=== PATIENT | male | born 1970 | race Caucasian/White ===

== ENCOUNTER 2017-09-02 19:47 | Emergency (ER) | payer OTHER ==
[2017-09-02 19:57] VITALS: TEMP 98.9
[2017-09-02] MEDS ORDERED: HYDROmorphone 2 MG/ML 1 ML SYRINGE IM STA (20:33)
[2017-09-02] MEDS ORDERED: HYDROmorphone 2 MG/ML 1 ML SYRINGE IVP STA (21:07)
[2017-09-02] MEDS ORDERED: SODIUM CHLORIDE 0.9% 1,000 ML IV STA (21:07)
[2017-09-02] MEDS ORDERED: RX INFO: IV CONTRAST WAS GIVEN 1 EACH MISC MISCELLANE PRN (21:07)
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
[2017-09-02 21:31] LABS: Basophils # (A) 0.1 k/uL (0-0.2); Basophils % (A) 0 %; Eosinophils % (A) 0 %; HCT 45.8 % (39.0-53.0); HGB 14.9 gm/dL (13.0-17.5); Lymphocytes # (A) 1.7 k/uL (1.0-4.8); Lymphocytes % (A) 13 %; MCHC 32.6 g/dL (31.0-37.0); MCV 91.9 fL (80.0-100.0); Mean Platelet Volume 7.9; Monocytes # (A) 0.6 k/uL (0-1.0); Monocytes % (A) 5 %; Neutrophils # (A) 10.5 k/uL (1.3-7.7); Neutrophils % (A) 80 %; Platelet Count 257 k/uL (150-450); RBC 4.98 m/uL (4.30-5.90); RDW 12.6 % (11.5-15.5); WBC 13.1 k/uL (3.8-10.6)
[2017-09-02 21:35] VITALS: RESP 18
[2017-09-02 21:35] LABS: ALT 193 U/L (21-72); AST 136 U/L (17-59); Albumin 4.3 g/dL (3.5-5.0); Alkaline Phosphatase 104 U/L (38-126); Anion Gap 18 mmol/L; Blood Urea Nitrogen 11 mg/dL (9-20); Calcium 9.5 mg/dL (8.4-10.2); Carbon Dioxide 24 mmol/L (22-30); Chloride 97 mmol/L (98-107); Glucose 256 mg/dL (74-99); Potassium 4.4 mmol/L (3.5-5.1); Sodium 139 mmol/L (137-145); Total Bilirubin 0.5 mg/dL (0.2-1.3); Total Protein 7.6 g/dL (6.3-8.2)
[2017-09-02 21:36] LABS: Prothrombin Time 10.2 sec (9.0-12.0)
[2017-09-02 21:45] LABS: Creatine Kinase 411 U/L (55-170)
[2017-09-02 21:46] LABS: Partial Thromboplastin Time 20.7 sec (22.0-30.0)
[2017-09-02 21:58] LABS: Troponin I <0.012 ng/mL (0.000-0.034)
[2017-09-02 22:02] LABS: Creatine Kinase MB 2.6 ng/mL (0.0-2.4)
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
[2017-09-02] MEDS ORDERED: HYDROmorphone 0.5 MG/0.5 ML SYRINGE IVP STA (22:39)
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
[2017-09-02] MEDS ORDERED: ACET/COD 300 MG/30 MG STARTER PACK 6 TAB BTL PO STA (23:23)
[2017-09-02 23:33] VITALS: BP 132/78
[2017-09-02 23:52] VITALS: PULSE 105
== END 2017-09-02 23:52 | disposition home or self-care (01) ==
LOC: EC 19:47
DX: S42.112A Displaced fracture of body of scapula, left shoulder, initial encounter for closed fracture (principal); K76.0 Fatty (change of) liver, not elsewhere classified; Y92.89 Other specified places as the place of occurrence of the external cause; M54.6 Pain in thoracic spine; E11.9 Type 2 diabetes mellitus without complications; Z79.84 Long term (current) use of oral hypoglycemic drugs; Z79.899 Other long term (current) drug therapy; Z90.49 Acquired absence of other specified parts of digestive tract; V86.52XA Driver of snowmobile injured in nontraffic accident, initial encounter
CPT/HCPCS: 36415; 93005; 86900; 86901; 80053; 82550; 82553; 84484; 85025; 85610; 85730; 86850; 72070; 73030; 71045; 71260; 74177; 73200; 99285; 96374; 96376; 96361 ×2; 96372; J1170 ×2; Q9967

== ENCOUNTER → 2017-12-21 | Outpatient (CLI) | payer OTHER ==
[2017-12-21 13:39] LABS: Basophils % (A) 0 %; Eosinophils # (A) 0.2 k/uL (0-0.7); Eosinophils % (A) 2 %; HCT 46.7 % (39.0-53.0); HGB 15.5 gm/dL (13.0-17.5); Lymphocytes # (A) 1.8 k/uL (1.0-4.8); Lymphocytes % (A) 25 %; MCH 29.4 pg (25.0-35.0); MCHC 33.2 g/dL (31.0-37.0); MCV 88.5 fL (80.0-100.0); Mean Platelet Volume 7.8; Monocytes # (A) 0.6 k/uL (0-1.0); Monocytes % (A) 8 %; Neutrophils # (A) 4.3 k/uL (1.3-7.7); Neutrophils % (A) 62 %; Platelet Count 212 k/uL (150-450); RBC 5.28 m/uL (4.30-5.90); RDW 12.7 % (11.5-15.5); WBC 6.9 k/uL (3.8-10.6)
[2017-12-21 13:57] LABS: ALT 128 U/L (21-72); AST 95 U/L (17-59); Albumin 4.3 g/dL (3.5-5.0); Alkaline Phosphatase 121 U/L (38-126); Anion Gap 14 mmol/L; Blood Urea Nitrogen 11 mg/dL (9-20); Carbon Dioxide 30 mmol/L (22-30); Chloride 99 mmol/L (98-107); Cholesterol 161 mg/dL (<200); Glucose 203 mg/dL (74-99); HDL Cholesterol 40 mg/dL (40-60); LDL Cholesterol,Calculated 97 mg/dL (0-99); Potassium 4.5 mmol/L (3.5-5.1); Sodium 143 mmol/L (137-145); Total Bilirubin 0.9 mg/dL (0.2-1.3); Total Protein 7.4 g/dL (6.3-8.2); Triglycerides 121 mg/dL (<150)
[2017-12-21 14:27] LABS: Prostate Specific Antigen 0.75 ng/mL (0.00-4.00)
[2017-12-21 20:14] LABS: Hemoglobin A1C 10.5 % (4.0-6.0)
== END | disposition home or self-care (01) ==
LOC: LABWHC1 13:06
PROVIDERS: ATTEND Family Medicine
DX: E11.9 Type 2 diabetes mellitus without complications (principal); Z12.5 Encounter for screening for malignant neoplasm of prostate
CPT/HCPCS: 36415; 80053; 80061; 83036; 84153; 85025

== ENCOUNTER → 2019-04-17 | Outpatient (CLI) | payer OTHER ==
--- NOTE | 2019-04-17 14:21 | CT ---
EXAMINATION TYPE: CT abdomen pelvis wo con DATE OF EXAM: 04/17/2019 COMPARISON: 09/02/2017 INDICATION: R 31.0 DLP: 1225.1 mGycm, Automated exposure control for dose reduction was used. CONTRAST: 0 mL of Isovue 300. Study performed without Oral Contrast TECHNIQUE: Axial images were obtained from above the diaphragm to the pubic rami in the axial plane a t 5 mm thick sections. Reconstructed images are reviewed on the computer in the coronal plane. FINDINGS: Limited CT sections are obtained the lung bases. The lung bases are clear. CT ABDOMEN: Liver: Moderate fatty infiltration of the liver. Spleen: Normal Pancreas: Normal Adrenal glands: The adrenal glands are normal. Gallbladder: Surgically absent Kidneys: No masses are evident. No hydronephrosis is present. No cysts are present. Renal stones a re not evident. Aorta: Normal Inferior vena cava: Normal. CT PELVIS: A few diverticuli within the sigmoid colon. Study is performed without oral contrast limiting bowel e valuation. No suspicious inflammatory changes or dilated bowel are evident. Appendix: Not identified. No suspicious inflammatory changes or dilated structures are evident. Urinary bladder: Normal. Genitourinary structures: Prostate is prominent. Osseous structures: Small sclerotic areas within the lateral posterior left ischial ramus. Small bone island is in the anterior left femoral head. IMPRESSIONS: 1. Fatty infiltration of liver. 2. Mild diverticulosis of the sigmoid colon.
== END | disposition home or self-care (01) ==
LOC: RADCTMAIN 13:08
PROVIDERS: ATTEND Family Medicine
DX: K76.0 Fatty (change of) liver, not elsewhere classified (principal); K57.30 Diverticulosis of large intestine without perforation or abscess without bleeding
CPT/HCPCS: 74176

== ENCOUNTER 2023-06-16 09:54 | Day surgery (SDC) | payer BC ==
[2023-06-15 09:56] VITALS: BMI 39.0
[~2023-06-16 09:54] MED LIST: LACTATED RINGERS 1,000 ML IV SCH
[2023-06-16 10:16] VITALS: TEMP 97.8
[2023-06-16 10:26] LABS: Glucose,Whole Blood 119 mg/dL (70-110)
[2023-06-16] MEDS ORDERED: LIDOCAINE 1% INJ 10MG/ML (20 ML MDV) ONE (11:39)
[2023-06-16] MEDS ORDERED: PROPOFOL 10 MG/ML 20 ML VIAL IV ONE (11:39)
--- NOTE | 2023-06-16 11:53 | P.PCN ---
Date of Procedure: 06/16/23 Procedure(s) Performed: BRIEF HISTORY: Patient is a 53-year-old pleasant 8 male scheduled for an elective colonoscopy as a part of evaluation of prior history of colon polyps. Last colonoscopy was 10 years ago. PROCEDURE PERFORMED: Colonoscopy with cold biopsy. PREOPERATIVE DIAGNOSIS: History of colon polyps. IV sedation per Anesthesia. PROCEDURE: After informed consent was obtained, the patient, was brought into the endoscopy unit. IV sedation was administered by Anesthesia under continuous monitoring. Digital rectal examination was normal. Initially the Olympus CF-160 flexible video colonoscope was then inserted in the rectum, gradually advanced into the cecum without any difficulty. Careful examination was performed as the scope was gradually being withdrawn. Ileocecal valve and the appendiceal orifice were visualized and appeared normal. Prep was excellent. Mucosa of the cecum, ascending colon, appeared normal. In the transverse colon there was a 3 mm polyp that was removed by cold biopsy. Rest of the transverse colon, descending colon, sigmoid colon, and rectum appeared normal. In the rectum there were 2 polyps measuring 3 and 4 mm in size both of which were removed by cold biopsy. Retroflexion was performed in the rectum and no lesions were seen. The patient tolerated the procedure well. IMPRESSION: 3 mm transverse colon polyp status post cold biopsy 3 mm and 4 mm rectal polyp status post cold biopsy Rest of the colon appeared normal RECOMMENDATIONS: Findings of this examination were discussed with the patient as well as his family. He was advised to follow with the biopsy results. If the biopsy results adenoma he can have a repeat colonoscopy in 5 years
[2023-06-16 12:14] VITALS: BP 118/79; PULSE 91; RESP 16
[2023-06-16 12:27] LABS: Glucose,Whole Blood 120 mg/dL (70-110)
== END 2023-06-16 12:26 | disposition home or self-care (01) ==
LOC: ORWHC2ENDO 09:54
PROVIDERS: ATTEND Internal Medicine Gastroenterology
DX: Z12.11 Encounter for screening for malignant neoplasm of colon (principal); D12.3 Benign neoplasm of transverse colon; K62.1 Rectal polyp; Z86.010 Personal history of colon polyps; I10 Essential (primary) hypertension; E78.5 Hyperlipidemia, unspecified; E11.9 Type 2 diabetes mellitus without complications; K21.9 Gastro-esophageal reflux disease without esophagitis; E66.01 Morbid (severe) obesity due to excess calories; J45.909 Unspecified asthma, uncomplicated; Z79.51 Long term (current) use of inhaled steroids; Z79.84 Long term (current) use of oral hypoglycemic drugs; Z79.899 Other long term (current) drug therapy
CPT/HCPCS: 88305; 45380; J2001; J2704

== ENCOUNTER → 2024-04-16 | Outpatient (CLI) | payer BC ==
[2024-04-16 16:52] LABS: Basophils # (A) 0.05 X 10*3/uL (0.00-0.10); Basophils % (A) 0.7 %; Eosinophils # (A) 0.12 X 10*3/uL (0.04-0.35); Eosinophils % (A) 1.7 %; HGB 14.3 g/dL (13.0-17.0); Lymphocytes # (A) 0.97 X 10*3/uL (0.90-5.00); MCHC 32.5 g/dL (32.0-37.0); MCV 92.2 FL (80.0-97.0); Monocytes # (A) 0.87 X 10*3/uL (0.20-1.00); Monocytes % (A) 12.5 %; NRBC Per 100 WBC 0 X 10*3/uL (0.00-0.01); Neutrophils # (A) 4.91 X 10*3/uL (1.80-7.70); Neutrophils % (A) 70.7 %; Platelet Count 201 X 10*3/uL (140-440); RBC 4.77 X 10*6/uL (4.40-5.60); RDW 13.2 % (11.5-14.5); WBC 6.95 X 10*3/uL (4.50-10.00)
[2024-04-16 16:58] LABS: ALT 61 U/L (10-49); AST 62 U/L (14-35); Albumin 4.4 g/dL (3.8-4.9); Albumin/Globulin Ratio 1.42 Ratio (1.60-3.17); Alkaline Phosphatase 109 U/L (41-126); Blood Urea Nitrogen 9.8 mg/dL (9.0-27.0); Calcium 9.7 mg/dL (8.7-10.3); Carbon Dioxide 30.6 mmol/L (21.6-31.8); Chloride 96 mmol/L (96-109); Chol/HDL Ratio 1.91 Ratio; Globulin 3.1 g/dL (1.6-3.3); Glucose 126 mg/dL (70-110); LDL Cholesterol,Calculated 48.6 mg/dL (0.0-131.0); Potassium 4.2 mmol/L (3.5-5.5); Sodium 137 mmol/L (135-145); Total Bilirubin 0.8 mg/dL (0.3-1.2); Total Protein 7.5 g/dL (6.2-8.2); VLDL Calculation 13.44 mg/dL (5.00-40.00)
== END | disposition home or self-care (01) ==
LOC: LABWHC1 09:06
PROVIDERS: ATTEND Family Medicine
DX: E11.40 Type 2 diabetes mellitus with diabetic neuropathy, unspecified (principal)
CPT/HCPCS: 36415; 80053; 80061; 83036; 85025

== ENCOUNTER 2024-06-29 19:48 | Emergency (ER) | payer BC ==
[2024-06-29 19:56] VITALS: TEMP 98.8
--- NOTE | 2024-06-29 20:08 | ED ---
Head Injury HPI - General Chief complaint: Head Injury Stated complaint: fall, head injury, ETOH Time Seen by Provider: 06/29/24 20:06 Source: patient, RN notes reviewed Mode of arrival: wheelchair Limitations: no limitations - History of Present Illness Initial comments: 54-year-old male presenting with head injury 1 hour ago. Patient states he had a trip and fall, landing face first onto the cement. Patient is spent the day prior hopping and [employer] and admits he is intoxicated with alcohol. Denies loss of consciousness. Denies blood thinners. Denies other injuries. - Related Data Home Medications Medication Instructions Recorded Confirmed Montelukast [Singulair] 10 mg PO DAILY 12/18/13 06/15/23 Mv-Min/Folic/K1/Lycopen/Lutein 1 tab PO DAILY 09/02/17 06/15/23 [Centrum Silver Men Tablet] Cetirizine HCl [Zyrtec] 10 mg PO DAILY PRN 06/15/23 06/15/23 Cholecalciferol [Vitamin D3 (125 10,000 units PO DAILY 06/15/23 06/15/23 Mcg = 5000 Iu)] Glimepiride 4 mg PO BID 06/15/23 06/15/23 Glucosamine/Chondr Gotti A Sod [Osteo 1 each PO DAILY 06/15/23 06/15/23 Bi-Flex Caplet] Insulin Glargine,Hum.rec.anlog 50 units SQ BID 06/15/23 06/15/23 [Lantus Solostar Pen] Losartan Potassium 100 mg PO DAILY 06/15/23 06/15/23 Novolog Insulin 1 dose SQ DIRECTED 06/15/23 Omeprazole 20 mg PO DAILY PRN 06/15/23 06/15/23 Rosuvastatin Calcium 5 mg PO DAILY 06/15/23 06/15/23 Semaglutide [Ozempic] 1 mg SQ GOTTI 06/15/23 06/15/23 Vitamin B Complex 1 each PO DAILY 06/15/23 06/15/23 hydroCHLOROthiazide 25 mg PO DAILY 06/15/23 06/15/23 metFORMIN HCL [Glucophage] 1,000 mg PO BID 06/15/23 06/15/23 traZODone HCL 100 mg PO HS 06/15/23 06/15/23 Allergies/Adverse reactions: Allergies Allergy/AdvReac Type Severity Reaction Status Date / Time No Known Allergies Allergy Verified 06/29/24 19:50 Review of Systems ROS Statement: Those systems with pertinent positive or pertinent negative responses have been documented in the HPI. ROS Other: All systems not noted in ROS Statement are negative. Past Medical History Past Medical History: Diabetes Mellitus, GERD/Reflux, Hypertension Additional Past Medical History / Comment(s): ENVIRONMENTAL ALLERGIES., FREQUEST DIARRHEA/URGENCY., HX OF COLON POLYPS, DDD., WEARS GLUCOSE MONITOR AND TAKES INSULIN ACCORDING TO GLUCOSE LEVEL AND FOOD INTAKE. History of Any Multi-Drug Resistant Organisms: None Reported Past Surgical History: Cholecystectomy Additional Past Surgical History / Comment(s): SINUS SURGERY, LASIK EYE, COLONOSCOPY Past Anesthesia/Blood Transfusion Reactions: No Reported Reaction Past Psychological History: PTSD Smoking Status: Never smoker Past Alcohol Use History: Daily Past Drug Use History: None Reported - Past Family History Father Family Medical History: Cancer, CVA/TIA Additional Family Medical History / Comment(s): PROSTATE AND LIVER CANCER General Exam Limitations: no limitations General appearance: alert, in no apparent distress Head exam: Present: normocephalic, other (Multiple abrasions present on forehead and bridge of nose with no active bleeding. Dried blood present in bilateral naris however no hematomas or active bleeding.) Eye exam: Present: PERRL, EOMI, periorbital swelling (Right-sided periorbital swelling). Absent: normal appearance, scleral icterus, conjunctival injection, periorbital tenderness Pupils: Present: normal accommodation ENT exam: Present: normal exam, normal oropharynx, mucous membranes moist Neck exam: Present: normal inspection. Absent: tenderness, meningismus, lymphadenopathy Respiratory exam: Present: normal lung sounds bilaterally. Absent: respiratory distress, wheezes, rales, rhonchi, stridor Cardiovascular Exam: Present: regular rate, normal rhythm, normal heart sounds. Absent: systolic murmur, diastolic murmur, rubs, gallop, clicks Neurological exam: Present: alert, oriented X3, CN II-XII intact Psychiatric exam: Present: normal affect, normal mood Skin exam: Present: warm, dry, intact, normal color. Absent: rash Course Vital Signs 06/29/24 06/29/24 19:50 21:54 Temperature 98.8 F Pulse Rate 113 H 102 H Respiratory 18 20 Rate Blood Pressure 130/89 128/71 O2 Sat by Pulse 96 96 Oximetry Medical Decision Making - Medical Decision Making Was pt. sent in by a medical professional or institution ([facility], [facility], urgent care, hospital, or fdc...) When possible be specific @ -No Did you speak to anyone other than the patient for history (EMS, parent, family, police, friend...)? What history was obtained from this source @ -No Did you review nursing and triage notes (agree or disagree)? Why? @ -I reviewed and agree with nursing and triage notes Were old charts reviewed (outside hosp., previous admission, EMS record, old EKG, old radiological studies, urgent care reports/EKG's, fdc records)? Report findings @ -No old charts were reviewed Differential Diagnosis (chest pain, altered mental status, abdominal pain women, abdominal pain men, vaginal bleeding, weakness, fever, dyspnea, syncope, headache, dizziness, GI bleed, back pain, seizure, CVA, palpatations, mental health, musculoskeletal)? @ -Differential Musculoskeletal Skull fracture, intracranial bleed, concussion, muscular strain, contusion, ligament sprain, fracture, arthritis, septic arthritis, bursitis, cellulitis, muscle spasm, nerve compression, DVT, arterial occlusion, herpes zoster, electrolyte abnormality, tumor.... This is not meant to be in all inclusive list EKG interpreted by me (3pts min.). @ -None X-rays interpreted by me (1pt min.). @ -None done CT interpreted by me (1pt min.). @ - CT facial bones and brain/C-spine negative for acute process U/S interpreted by me (1pt. min.). @ -None done What testing was considered but not performed or refused? (CT, X-rays, U/S, labs)? Why? @ -None What meds were considered but not given or refused? Why? @ -None Did you discuss the management of the patient with other professionals (professionals i.e. [facility], [facility], lab, RT, psych nurse, social insurance administrator, cylinder block mechanic, teacher, press officer, window caser)? Give summary @ -No Was smoking cessation discussed for >3mins.? @ -No Was critical care preformed (if so, how long)? @ -No Were there social determinants of health that impacted care today? How? (Homelessness, low income, unemployed, alcoholism, drug addiction, transportation, low edu. Level, literacy, decrease access to med. care, halfway, rehab)? @ -No Was there de-escalation of care discussed even if they declined (Discuss DNR or withdrawal of care, Hospice)? DNR status @ -No What co-morbidities impacted this encounter? (DM, HTN, Smoking, COPD, CAD, Cancer, CVA, ARF, Chemo, Hep., AIDS, mental health diagnosis, sleep apnea, morbid obesity)? @ -None Was patient admitted / discharged? Hospital course, mention meds given and route, prescriptions, significant lab abnormalities, going to OR and other p ertinent info. @ -Discharge. This is a 54-year-old male presenting with head injury prior to arrival status post mechanical fall. Denies loss of consciousness. Denies blood thinners. Physical examination remarkable for multiple facial abrasions. CT facial bones and brain/C-spine negative for acute process. Discussed results with patient. Tetanus was updated. Appropriate return precautions and follow-up care discussed. Case was discussed with my ED attending Dr. Gagnon. Undiagnosed new problem with uncertain prognosis? @ -No Drug Therapy requiring intensive monitoring for toxicity (Heparin, Nitro, Insulin, Cardizem)? @ -No Were any procedures done? @ -No Diagnosis/symptom? @ -Head injury with severe mechanism Acute, or Chronic, or Acute on Chronic? @ - acute Uncomplicated (without systemic symptoms) or Complicated (systemic symptoms)? @ -Uncomplicated Side effects of treatment? @ -No Exacerbation, Progression, or Severe Exacerbation? @ -No Poses a threat to life or bodily function? How? (Chest pain, [place], [place], pneumonia, PE, COPD, DKA, ARF, appy, cholecystitis, CVA, Diverticulitis, Homicidal, Suicidal, threat to staff... and all critical care pts) @ -No Disposition Clinical Impression: Moderate to severe traumatic injury of head Disposition: HOME SELF-CARE Condition: Stable Instructions (If sedation given, give patient instructions): Head Injury (ED) Additional Instructions: Please return to the Emergency Department if symptoms worsen or any other concerns. Is patient prescribed a controlled substance at d/c from ED?: No Referrals: Basilio Patiño MD [Primary Care Provider] - 1-2 days Time of Disposition: 21:42
--- NOTE | 2024-06-29 21:33 | CT ---
EXAMINATION TYPE: CT brain vishal wo con DATE OF EXAM: 06/29/2024 8:37 PM COMPARISON: None. CLINICAL INDICATION: Male, 54 years old with history of pain, ETOH, fall with facial trauma to nasal region TECHNIQUE: CT of the brain is performed utilizing 3 mm thick sections through the posterior fossa and 3 mm thick sections through the remaining calvarium. Study is performed within 24 hours of arrival to the hospital. Contrast used: mL of , (none if empty) CT DLP: combined 1418.2 mGycm, Automated exposure control for dose reduction was used. FINDINGS: No abnormal hyperdensity is present to suggest an acute intracranial hemorrhage. No mass lesion is evident. No acute infarcts are evident. Ventricles and sulci are appropriate for the patient age. No acute fractures. Soft tissue swelling over the right frontal region is present. Nasal bones appear intact Paranasal sinuses and mastoid air cells within the [id number] are clear. IMPRESSIONS: 1. No acute intracranial process. Follow-up MRI can be performed as clinically indicated. CT cervical spine. COMPARISON: None TECHNIQUE: CT of the cervical spine is performed in the axial plane at 2 mm thick sections. Reconstr ucted images in the coronal, and sagittal plane are reviewed on the computer. FINDINGS: No acute fractures are evident. Vertebral body alignment is normal. Mild disc space narrowing is present C5-6 C6-7. Spondylosis is present. There spinal lamellar line is intact. Large anterior vertebral body spurs are present C5-C7. Vertebral body heights are preserved. No spinal canal stenosis is evident. No neural foraminal stenosis is evident. IMPRESSION: 1. Acute osseous abnormality cervical spine [facility], , 06/29/2024 9:31 PM
--- NOTE | 2024-06-29 21:36 | CT ---
EXAMINATION TYPE: CT facial bones wo con DATE OF EXAM: 06/29/2024 8:39 PM COMPARISON: None. CLINICAL INDICATION: Male, 54 years old with history of head injury, ETOH, fall with facial trauma to nasal region TECHNIQUE: The paranasal sinuses are examined in the axial plane at 2 mm thick sections. Reconstruct ed images in the coronal plane were obtained. Contrast used: mL of , (none if empty) Oral contrast used: (none if empty) CT DLP: 1418.2 mGycm, Automated exposure control for dose reduction was used. FINDINGS: There is dental amalgam scatter artifact. Soft tissue swelling is over the right frontal region no underlying fractures evident. Inferior right maxillary sinus retention cyst is present. The ethmoid air cells are clear. The sphe noid sinuses are clear. The frontal sinuses are clear. Maxillary spine is intact. Nasal bones are intact. Septum is left septal deviation. No fractures evid ent. Greater wings of sphenoid are intact. Zygomatic arches are intact. The left ostiomeatal unit is patent. Right ostiomeatal unit appears obstructed IMPRESSION: 1. No acute fractures identified. 2. Mild soft tissue swelling right frontal region [facility], , 06/29/2024 9:34 PM
[2024-06-29] MEDS: DIPH,PERTUS(ACELL)TETVAC-LF 0.5 ML VIAL IM ONE (21:48)
[2024-06-29 21:55] VITALS: BP 128/71; PULSE 102; RESP 20
== END 2024-06-29 21:55 | disposition home or self-care (01) ==
LOC: EC 19:48
DX: S09.90XA Unspecified injury of head, initial encounter (principal); F10.129 Alcohol abuse with intoxication, unspecified; Z23 Encounter for immunization; W01.0XXA Fall on same level from slipping, tripping and stumbling without subsequent striking against object, initial encounter
CPT/HCPCS: 70450; 70486; 72125; 90471; 90715; 99284